=== PATIENT | male | born 1970 | race Caucasian/White ===

== ENCOUNTER 2022-10-09 00:46 | Emergency (ER) | payer MEDICAID, SELFPAY ==
[2022-10-09 00:53] VITALS: BP 128/85; PULSE 82; RESP 18; TEMP 36.7; O2SAT 94; BMI 26.5
--- NOTE | 2022-10-09 01:25 | CRLHL7_ITS ---
For Patients: As a result of the Century Cures Act, medical imaging exams and procedure reports are released immediately into your electronic medical record. You may view this report before your referring provider. If you have questions, please contact your health care provider. INDICATION: Cough. TECHNIQUE: Chest 1 views. COMPARISON: None. FINDINGS: Lungs: Low lung volumes. No consolidation. The tracheobronchial tree and hilar structures are unremarkable. Pleura: No pleural effusion or pneumothorax. Heart and Mediastinum: Normal heart size. The great vessels of the thorax are unremarkable. Bones: No acute displaced osseous process. IMPRESSION: No consolidation. Dictated by Rodriguez Huffman MD @ 10/09/2022 1:54:38 AM (Electronically Signed)
--- NOTE | 2022-10-09 01:25 | ED_ITS ---
HPI - URI/Sore Throat General Time Seen by Provider: 01:20 Date Seen: 10/09/22 Chief Complaint: Cough Stated Complaint: Cough Time Seen by Provider: 10/09/22 00:53 Source: patient and RN notes reviewed Mode of arrival: ambulatory Limitations: no limitations History of Present Illness HPI Narrative: Rodriguez is a very pleasant 51-year-old gentleman with a history HIV, undetectable levels, who comes to the emergency room for a cough of 2 weeks duration. Patient notes that he had the onset of a cough the week prior to [place] as he was caring for his 3-year-old daughter. Then he worsened on the which he describes as ?feeling horrible?. On the he felt somewhat better and flew to [place] and spent some time on his boat. However, he had the cough return associated with some experience diarrhea. He notes that he was using a large amount of Robitussin. He has continued to have persistent coughing and states that over the last 3-4 days he has had minimal food or water intake. He states every time he tries to drink or eat he vomits that up. He notes he has been able to keep some food and water down. He is drinking water here in the emergency room and states that really is the 1st he has been able to drink in quite some time. He denies a sore throat and has not had a runny nose. In the past day he has noticed more pressure in his forehead. He denies ear pain and denies belly pain. He has no past history of DVT and denies any calf pain, calf swelling. Patient did not receive flu vaccination this year. Patient has received COVID v accinations. States that ever since he had COVID vaccinations he has been intermittently ill and had never been before the vaccination. Related Data Home Medications Medication Instructions Recorded Confirmed bictegravir 50 mg-emtricitabine tab PO 10/09/22 200 mg-tenofovir alafenam 25 mg tablet (Biktarvy) Previous Rx's Medication Instructions Recorded benzonatate 100 mg capsule 100 mg PO BID-TID PRN cough #30 10/09/22 caps doxycycline hyclate 100 mg capsule 100 mg PO BID 7 days #14 caps 10/09/22 Allergies Allergy/AdvReac Type Severity Reaction Status Date / Time No Known Drug Allergies Allergy Verified 10/09/22 00:53 Review of Systems Status of ROS: Reports: 10 or more systems reviewed and unremarkable except as noted in History and below Const: Denies: fever or chills ENMT: Denies: throat pain, throat swelling or difficulty swallowing Cardio: Reports: chest pain (With cough); Denies: edema or swelling of feet/ankles GI: Reports: vomiting and diarrhea (Now resolved); Denies: abdominal pain, nausea or difficulty swallowing : Denies: painful urination Integ/Breast: Denies: rash Neuro: Reports: headache (Frontal) Allergy/Immuno: Denies: throat swelling [facility] Medical History HIV (human immunodeficiency virus infection) Social History Smoking Status: Never smoker Do you use any of these nicotine containing products: Smokeless Tobacco Second hand tobacco smoke exposure: No How often do you have a drink containing alcohol: never How often do you have six or more drinks on one occasion: Never AUDIT-C Alcohol total score: 0 Non-prescribed substance use: denies use service: No Exam Narrative: Exam Narrative: Patient is alert and oriented. He is not in any acute distress. He has frequent coughing almost bronchospasm in nature. Eyes are clear as are TM. Oral cavity with moist mucous membranes and posterior oropharynx without erythema. Neck is supple without lymphadenopathy. Heart with regular rate and rhythm. Lungs are with crackles in the bases but they do clear with deep inspiration. Abdomen soft. Lower extremities without edema. Const: Vital Signs, click to edit/add: Vital Signs - 24 hr 10/09/22 00:53 Temperature 98.1 F Pulse Rate [Pulse Oximeter] 82 Respiratory Rate 18 Blood Pressure [Ri ght Upper Arm] 128/85 Pulse Oximetry 94 Oxygen Delivery Me thod Room Air Documenting provider has reviewed patient's vital signs: yes Course Course Hospital Course: At this time given patient's lack of food intake will place IV 1 L of normal saline and check CBC as well as comprehensive panel and CRP and urinalysis. Differential diagnosis includes but is not limited to bronchitis, URI, COVID, influenza, PE. At this time patient has normal pulse and oxygen saturations are 94% with no evidence of lower extremity edema or calf tenderness or personal history of PE. Negative wells criteria. I do think this is likely a secondary infection after initial viral infection. Chest x-ray also ordered. Reevaluation(s) Reevaluation #1: Patient noted that the DuoNeb only made him cough. He has not really felt much better. Chest x-ray without evidence of infiltrate. In our conversation we do ascertain that Rodriguez indeed has had symptoms for 2 weeks. Vital Signs Vital signs: Initial Vital Signs Temperature 98.1 F 10/09/22 00:53 Temperature Source Temporal Artery Scan 10/09/22 00:53 Pulse Rate 82 10/09/22 00:53 Respiratory Rate 18 10/09/22 00:53 Blood Pressure 128/85 10/09/22 00:53 Blood Pressure Mean 99 10/09/22 00:53 Pulse Oximetry 94 10/09/22 00:53 Oxygen Delivery Method 10/09/22 00:53 Vital Signs Temperature 98.1 F 10/09/22 00:53 Pulse Rate 82 10/09/22 00:53 Respiratory Rate 18 10/09/22 00:53 Blood Pressure 128/85 10/09/22 00:53 Pulse Oximetry 94 10/09/22 00:53 Oxygen Delivery Method 10/09/22 00:53 Temperature 98.1 F 10/09/22 00:53 Pulse Rate 82 10/09/22 00:53 Respiratory Rate 18 10/09/22 00:53 Blood Pressure 128/85 10/09/22 00:53 Pulse Oximetry 94 10/09/22 00:53 Oxygen Delivery Method 10/09/22 00:53 MDM - URI/Sore Throat MDM Narrative Medical decision making narrative: 1. Influenza a-patient has had ongoing symptoms for 2 weeks. He certainly is out of the window for Tamiflu treatment. Fortunately x-ray is reassuring and oxygen levels are at 94%. He is not tachycardic. Will use Tessalon Perles 100 mg p.o. t.i.d. p.r.n. number 30 sent to [facility]'s pharmacy. 2. Bronchitis-and has had ongoing symptoms for 2 weeks and states that his cough is actually getting worse. At this point I do think he would benefit from an antibiotic. Initially we discussed the use of Zithromax but there is aim moderate interaction with his HIV medication and therefore will use doxycycline 100 mg p.o. b.i.d. x7 days. First dose of doxycycline and Tessalon Perles given in the ED. 3. Post-tussive vomiting-in spite of poor full fluid intake over the past 4 days patient's labs are reassuring with normal creatinine and BUN. Patient was given 1 L of saline. 2. Disposition-home at this time. Recommend rest, pushing fluids. Return to the emergency room for worsening symptoms especially fever, dehydration, difficulty breathing. Lab Data Attestation: I reviewed the patient's lab results. Labs: Lab Results 10/09/22 10/09/22 10/09/22 Range/Units 01:00 01:45 01:45 WBC 9.48 (4.50-11.00) K/uL RBC 3.95 L (4.30-5.90) m/uL Hgb 12.9 L (13.5-17.5) gm/dL Hct 36.7 L (37.0-53.0) % MCV 93 (80-100) fL MCH 33 (26-34) pg MCHC 35 (32-36) gm/dL RDW Coeff of Prieto 11.7 (11.5-15.5) % Plt Count 266 (140-440) K/uL Neut % (Auto) 62.9 (42.0-72.0) % Lymph % (Auto) 20.9 (20-44) % Faulk % (Auto) 10.0 (0.0-11.0) % Eos % (Auto) 4.3 (0.0-7.0) % Baso % (Auto) 0.2 (0.0-3.0) % Neut # (Auto) 5.96 (1.7-7.0) K/uL Lymph # (Auto) 1.98 (0.90-2.90) K/uL Faulk # (Auto) 0.90 (0.00-0.90) K/UL Eos # (Auto) 0.41 (0.00-0.50) K/uL Baso # (Auto) 0.02 (0.00-0.30) K/uL Sodium 140 (135-149) mmol/L Potassium 3.8 (3.6-5.1) mmol/L Chloride 108 (96-114) mmol/L Carbon Dioxide 26 (20-32) mmol/L BUN 13 (7-30) mg/dL Creatinine 0.9 (0.5-1.5) mg/dL Estimated Creat Clear 104.58 Estimated GFR 104 ml/min Glucose 110 (60-115) mg/dL Calcium 8.3 L (8.4-10.6) mg/dL Total Bilirubin 0.4 (0.1-1.5) mg/dL AST 57 H (12-35) U/L ALT 73 H (4-50) U/L Alkaline Phosphatase 61 (40-150) U/L C-Reactive Protein 3.3 H (0.5-1.0) mg/dL Total Protein 7.0 (6.0-8.3) g/dL Albumin 3.9 (3.3-5.0) g/dL SARS-CoV-2 (PCR) Negative SARS-CoV-2 (Negative) Influenza Type A (PCR) POSITIVE PCR FLU A A (Negative) Influenza Type B (PCR) Negative PCR FLU B (Negative) RSV (PCR) Negative PCR RSV (Negative) Imaging Data Chest x-ray: Attestation: I have reviewed the pertinent imaging results. Radiologist's impression: Lungs: Low lung volumes. No consolidation. The tracheobronchial tree and hilar structures are unremarkable. Pleura: No pleural effusion or pneumothorax. Heart and Mediastinum: Normal heart size. The great vessels of the thorax are unremarkable. Bones: No acute displaced osseous process. IMPRESSION: No consolidation. Discharge Plan Discharge Clinical Impression: Influenza A, Bronchitis Patient Disposition: Home, Self-Care Condition: Improved Additional Instructions: Doxycycline as directed. Zithromax which I had initially intended to use does have a potential interaction with your Biktarvy which can cause nausea, vomiting and diarrhea. Push fluids. Tessalon Perles may be used for cough. Recommend rest at this time. Seek medical attention for worsening symptoms. Prescriptions: New doxycycline hyclate 100 mg capsule 100 mg PO BID 7 Days Qty: 14 0RF benzonatate 100 mg capsule 100 mg PO BID-TID PRN (Reason: cough) Qty: 30 0RF No Action Biktarvy 50-200-25 mg tablet PO Label Comments: TAKE 1 TABLET BY MOUTH EVERY DAY Stand Alone Forms: [facility] Info Instructions
[2022-10-09] MEDS: 0.9 % SODIUM CHLORIDE 1000 ml 1,000 ML IV (01:38)
[2022-10-09] MEDS: IPRAT-ALBUT 0.5-2.5 MG/3 ML NEB 1 NEB IH (01:40)
[2022-10-09 01:53] LABS: PCR FLU A POSITIVE PCR FLU A (Negative); PCR FLU B Negative PCR FLU B (Negative); PCR RSV Negative PCR RSV (Negative)
[2022-10-09 01:54] LABS: Basophils Absolute Auto 0.02 K/uL (0.00-0.30); Basophils Percent Auto 0.2 % (0.0-3.0); Eosinophils Absolute Auto 0.41 K/uL (0.00-0.50); Eosinophils Percent Auto 4.3 % (0.0-7.0); Hematocrit 36.7 % (37.0-53.0); Hemoglobin* 12.9 gm/dL (13.5-17.5); Immature Granulocytes Abs Auto 0.16 K/uL (0.00-0.30); Immature Granulocytes Pct Auto 1.7 %; Lymphocytes Absolute Auto 1.98 K/uL (0.90-2.90); Lymphocytes Percent Auto 20.9 % (20-44); Mean Corpuscular HGB Conc 35 gm/dL (32-36); Mean Corpuscular Hemoglobin 33 pg (26-34); Mean Corpuscular Volume 93 fL (80-100); Neutrophils Absolute Auto 5.96 K/uL (1.7-7.0); Neutrophils Percent Auto 62.9 % (42.0-72.0); Platelet Count* 266 K/uL (140-440); RDW Coefficient of Variation % 11.7 % (11.5-15.5); Red Blood Count 3.95 m/uL (4.30-5.90); White Blood Count* 9.48 K/uL (4.50-11.00)
[2022-10-09 01:56] LABS: SARS PCR* Negative SARS-CoV-2 (Negative)
[2022-10-09 01:59] LABS: Slide Review Reflex No
[2022-10-09 02:07] LABS: Albumin* 3.9 g/dL (3.3-5.0); Chloride* 108 mmol/L (96-114)
[2022-10-09 02:08] LABS: Potassium* 3.8 mmol/L (3.6-5.1); Sodium* 140 mmol/L (135-149)
[2022-10-09 02:10] LABS: Bilirubin Total* 0.4 mg/dL (0.1-1.5); Creatinine* 0.9 mg/dL (0.5-1.5); Est. Creatinine Clearance* 104.58; Estimated Glomerular Filt Rate 104 ml/min
[2022-10-09 02:11] LABS: Alanine Aminotransferase* 73 U/L (4-50); Alkaline Phosphatase* 61 U/L (40-150); Aspartate Amino Transferase* 57 U/L (12-35); Blood Urea Nitrogen* 13 mg/dL (7-30); Calcium* 8.3 mg/dL (8.4-10.6); Carbon Dioxide* 26 mmol/L (20-32); Glucose* 110 mg/dL (60-115)
[2022-10-09 02:14] LABS: C Reactive Protein* 3.3 mg/dL (0.5-1.0)
[2022-10-09] MEDS: BENZONATATE 100 MG CAPSULE PO (03:02)
[2022-10-09] MEDS: DOXYCYCLINE HYCLATE 100 MG CAPSULE PO (03:02)
[2022-10-09 03:10] VITALS: BP 134/82; PULSE 96; RESP 14
== END 2022-10-09 03:12 | disposition home or self-care (01) ==
PROVIDERS: Family Medicine; Emergency Provider Family Medicine
DX: J09.X2 Influenza due to identified novel influenza A virus with other respiratory manifestations (principal); J40 Bronchitis, not specified as acute or chronic
CPT/HCPCS: 36415; 71045; 80053; 85025; 86140; 87502; 87634; 87635; 94640; 99284; A9270; J7030